=== PATIENT | male | born 1950 | race Caucasian/White ===

== ENCOUNTER 2016-09-07 12:05 | Emergency (ER) | payer OTHER ==
[~2016-09-07] VITALS: Wt 71.5 kg
[~2016-09-07 12:05] MED LIST: OMEP20CA16 PO
[2016-09-07] MEDS ORDERED: KETOROLAC 30 MG INJ IM STA (12:27)
[2016-09-07] MEDS ORDERED: traMADol 50 MG TAB PO ONE (12:30)
--- NOTE | 2016-09-07 13:22 | RADRPT ---
PROCEDURE: CT Abdomen and Pelvis without contrast. CLINICAL INDICATION: Right groin pain after lifting injury TECHNIQUE: CT scan of the abdomen and pelvis without contrast was performed on a multidetector hig h-resolution CT scanner. The patient was scanned without intravenous contrast. Coronal and sagittal reformatted images were obtained from the axial source images. Images were reviewed on a high-resol [employer] PACS workstation. The total exam CTDI equals 10.52 mGy and the total exam DLP equals 606.06 mG y-cm. One or more of the following dose reduction techniques were used: Automated exposure control. Adjustment of the mA and/or kV according to patient size. Use of iterative reconstruction technique. COMPARISON: None FINDINGS: CT abdomen: The lung bases are clear. The heart size is normal, without pericardial thickening or effusion. Th e liver is normal in size and density without focal mass or intrahepatic biliary dilatation. The sp danielito is normal in size and homogeneous in density. The stomach is partially collapsed, but is gross ly unremarkable. The pancreas as visualized is normal. The gallbladder is unremarkable. There is n o evidence for biliary dilatation. The adrenal glands are symmetric and normal. The kidneys are sy mmetrically unremarkable as well. No renal calculus or obstructive uropathy or mass lesion is seen. The aorta is of normal caliber. There is no retroperitoneal lymphadenopathy. The emigdio hepatis erin on is clear. The bowel and mesentery, as visualized, are equally unremarkable. CT pelvis: There is a tiny fat containing right inguinal hernia. There is a focus of soft tissue calcification adjacent to the right anterior inferior iliac spine likely representing old avulsion injury with he terotopic bone formation. The small bowel loops situated within the pelvis are unremarkable. There is mild prostatomegaly. The pelvic sidewalls and inguinal regions are clear. The sigmoid colon an d rectum are unremarkable. No mass, lymphadenopathy, or free fluid is seen. No acute inflammation is seen. The surrounding osseous structures are remarkable for degenerative spondylosis of the spin e. there is retrolisthesis of L2 on L3. There is moderate disk height loss and L2-L3 is noted. Th ere is a prominent Schmorl's node in the in the inferior endplate of L2. No osteolytic or osteoblast ic lesion is detected. IMPRESSION: 1. No mass, lymphadenopathy, or focal acute inflammatory process is identified. 2. Tiny fat containing right inguinal hernia. 3. Old avulsion injury involving the right anterior inferior iliac spine with heterotopic bone form ation. 4. Normal appendix. 5. Mild prostatomegaly. 6. Mild retrolisthesis at L2-L3 with discogenic disease. RPTAT: BB .Brittany Irwin MD, Date Time Electronically viewed and signed by .Brittany Irwin MD, on 09/07/2016 13:21 .O/
[2016-09-07] MEDS ORDERED: IBUP-1542 PO (13:29)
[2016-09-07] MEDS ORDERED: TRAM50TA2 PO (13:29)
[2016-09-07 13:30] LABS: URINE BLOOD (Dip) POC Negative (NEGATIVE)
--- NOTE | 2016-09-07 13:39 | ERD ---
ER Documentation Chief Complaint Date/Time DATE: 09/07/16 TIME: 13:36 Chief Complaint R GROIN PAIN FROM LIFTING SOMETHING HEAVY 2 WKS AGO . SOME SWELLING HPI 65-year-old male complains of pain in his right groin for last 2 weeks after lifting something heavy. Denies any fevers, vomiting, bowel or bladder changes , urinary complaints. Patient has a remote history of right inguinal hernia surgery ROS All systems reviewed and are negative except as per history of present illness. Medications Home Meds Active Scripts Ibuprofen* (Motrin*) 600 Mg Tab, 600 MG PO Q6, #20 TAB Prov:FRANSISCO ANTONY MD 09/07/16 Tramadol HCl (Tramadol HCl) 50 Mg Tablet, 50 MG PO Q4 Y for PAIN, #20 TAB Prov:FRANSISCO ANTONY MD 09/07/16 Reported Medications Omeprazole* (Omeprazole*) 20 Mg Capsule.dr, 20 MG PO DAILY, #30 CAP 10/05/15 Allergies Allergies: Coded Allergies: No Known Drug Allergies (Verified Allergy, Unknown, 10/05/15) PMhx/Soc Medical and Surgical Hx: pt denies Medical Hx, pt denies Surgical Hx History of Surgery: Yes (L LUNG TUMOR 1979, BILAT ING HERNIA REPAIR) Anesthesia Reaction: No Hx Neurological Disorder: No Hx Respiratory Disorders: No Hx Cardiac Disorders: No Hx Psychiatric Problems: No Hx Miscellaneous Medical Probl: No Hx Alcohol Use: No Hx Substance Use: No Hx Tobacco Use: No Physical Exam Vitals Vital Signs Date Time Temp Pulse Resp B/P Pulse Ox O2 Delivery O2 Flow Rate FiO2 09/07/16 12:12 98.0 71 20 128/83 99 Physical Exam Const: [] Alert, not ill-appearing. Patient watching was crutches due to pain per Head: Atraumatic Eyes: Normal Conjunctiva ENT: Normal External Ears, Nose and Mouth. Neck: Full range of motion..~ No meningismus. Resp: Clear to auscultation bilaterally Cardio: Regular rate and rhythm, no murmurs Abd: Soft, non tender, non distended. Normal bowel sounds. No hernias appreciated. There is a well-healed scar. Testicles are nontender descended and normal size bilaterally. Skin: No petechiae or rashes Back: No midline or flank tenderness Ext: No cyanosis, or edema. Tenderness primarily in the right inguinal fold without swelling or deformities no hernias appreciated. Neur: Awake and alert Psych: Normal Mood and Affect Results 24 hrs Laboratory Tests Test 09/07/16 13:32 Bedside Urine pH (LAB) 7.0 Bedside Urine Protein (LAB) Negative Bedside Urine Glucose (UA) Negative Bedside Urine Ketones (LAB) Negative Bedside Urine Blood Negative Bedside Urine Nitrite (LAB) Negative Bedside Urine Leukocyte Esterase (L Negative Current Medications Medications (Trade) Dose Ordered Sig/Shanice Route PRN Reason Start Time Stop Time Status Last Admin Dose Admin Ketorolac Tromethamine (Toradol) 30 mg ONCE STAT IM 09/07/16 12:27 09/07/16 12:29 DC 09/07/16 12:49 Tramadol HCl (Ultram) 50 mg ONCE ONCE PO 09/07/16 12:30 09/07/16 12:31 DC 09/07/16 12:49 Procedures/MDM Urine is negative for leukocytes, nitrates, glucose. Patient was given Toradol 30 mg i.m. and tramadol 50 mg by mouth. The uncertain cause of pain CT abdomen pelvis was performed which shows what appears to be an old avulsion fracture of the anterior iliac spine. There is no other acute findings to definitively explain the cause of patient's pain. Patient presents with right groin pain after lifting. I suspect may be due to this avulsion injury noted on the pelvis. There is no evidence of femoral or obturator hernia, external hernia or strangulation or bowel obstruction. There is no evidence neurologic deficit or bacterial infection. Patient will be treated with tramadol and ibuprofen instructions for continued limited ambulation and weightbearing instructions to follow-up with primary doctor orthopedist for further evaluation. Should return for fevers, vomiting, blood, new worsening symptoms with primary care doctor. The patient was stable with no new complaints during the ER course. Clinically, there is no current evidence to suggest meningitis, sepsis, acute abdomen, pneumonia, acute coronary syndrome, pulmonary embolism, or any other emergent condition appearing to require further evaluation or hospitalization. The patient should certainly return for any new or worsening symptoms per the aftercare instructions. They should otherwise follow-up with her primary care doctor for reevaluation this week. Departure Diagnosis: Primary Impression: Fracture Additional Impression: Injury of groin Encounter type: initial encounter Qualified Code: S39.91XA - Injury of groin , initial encounter Condition: Stable Patient Instructions: Fracture, Lower Extremity, Hip Strain Referrals: CHELSEA DELANEY MD, HRAIR E MD Additional Instructions: POSIBLEMENTE POQUITO FRACTURA EN HUESO DE PELVIS. Va al parker doctor/ specialista para mas evaluacon en el proximo semana. posiblemente necesita autorizado de parker doctor primario para specialista. Regresa para fiebre, o mas o nueva simptomas. FRANSISCO ANTONY MD September 07, 2016 13:39
[2016-09-07 14:16] VITALS: BP 120/72; PULSE 75; RESP 20; TEMP 98.3
== END 2016-09-07 14:18 | disposition home or self-care (01) ==
LOC: FTE 12:05
DX: S32.313 Displaced avulsion fracture of unspecified ilium (principal); X50.0XXA Overexertion from strenuous movement or load, initial encounter; Y92.9 Unspecified place or not applicable
CPT/HCPCS: 74176; 81003; 96372; J1885; Z7502; Z7610